=== PATIENT | male | born 1985 | race Asian ===

== ENCOUNTER 2019-07-26 15:03 | Emergency (ER) | payer OTHER ==
[~2019-07-26] VITALS: Ht 167.6 cm; Wt 70.3 kg
[2019-07-26] MEDS ORDERED: NORCO 5-325 TA1 EAC1 PO (16:50)
[2019-07-26] MEDS ORDERED: KEFLEX500 M1 PO (16:50)
[2019-07-26 16:53] VITALS: BP 101/67
== END 2019-07-26 16:53 | disposition home or self-care (01) ==
LOC: ER 15:03
DX: S62.632B Displaced fracture of distal phalanx of right middle finger, initial encounter for open fracture (principal); Z87.891 Personal history of nicotine dependence; W29.8XXA Contact with other powered hand tools and household machinery, initial encounter; Y93.89 Activity, other specified; Y92.89 Other specified places as the place of occurrence of the external cause; Y99.8 Other external cause status